=== PATIENT | female | born 1980 ===

== ENCOUNTER 2019-06-05 07:49 | Inpatient (IN) | payer MEDICAID ==
[~2019-06-05] VITALS: Ht 157.5 cm; Wt 58.8 kg
[2019-06-06 12:07] VITALS: BP 167/83
[2019-06-06] MEDS ORDERED: hydrOXYzine 25 MG tablet PO PRN ×2 (12:10→14:15)
[2019-06-06] MEDS ORDERED: loperamide 2mg capsule PO PRN (12:10)
[2019-06-06] MEDS ORDERED: mag hydrox/Alum hydrox/simeth 30ml oral suspension PO PRN (12:10)
[2019-06-06] MEDS ORDERED: magnesium hydroxide 30ml (MOM) UD suspension PO PRN (12:10)
[2019-06-06] MEDS ORDERED: acetaminophen 325mg tablet PO PRN (12:10)
[2019-06-06] MEDS ORDERED: LORazepam 1 MG tablet PO PRN (12:10)
[2019-06-06 12:55] VITALS: BP 167/83
[2019-06-06] MEDS ORDERED: benzocaine (Anbesol) 12ml bottle MM PRN (14:15)
[2019-06-06] MEDS: ibuprofen 200mg tablet PO PRN (14:39)
[2019-06-06] MEDS: acetaminophen 325mg tablet PO PRN (14:41)
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
--- NOTE | 2019-06-06 15:45 | NUR ---
NURSING PROGRESS NOTE Legal hold: 5150 DTS Client on involuntary status 5150 DTS Report received from nurse with use of SBAR Why are they here: Patient was found down and unresponsive in the shower after ingesting a whole bottle of Baclofen. She was life-flighted to [facility] from [facility] and was admitted to the ICU. ASSESSMENT What has happened this shift: The patient was cooperative with admission process. She is minimizing the very serious nearly life ending overdose she recently endured. States she has been "tricked" regarding the 5150 and states she agreed to come here for 3 days on a hold but will absolutely be leaving on Tuesday. She states she has massive support from family and friends at home and she'll "be good." (She would be returning to the same stressors.) She met with Dr. Lopez for assessment and afterwards stated, "he's going to make sure I can leave by Tuesday." When this nurse attempted a conversation with her about these issues and stressors at home with the suggestion she may be minimizing her recent grave suicide attempt she became irate and unreasonable and asked for a new nurse. S/I, H/I: Denies A/VH: Denies Sleep: None ADL's: Self Group attendance: None Were meds taken: yes Any med S/E: None MENTAL STATUS EXAM Appearance: Lots of tattoos, clean Eye contact: Direct Behavior: labile, irate Speech: pressured, loud Mood: Incongruent with circumstances Affect: Controlling, hostile Thought process: Linear Thought Content: Going home on Tuesday Cognition: Alert Insight: Poor Judgment: Poor INTERVENTIONS PRN's used: Tylenol, Anbesol Therapeutic interventions: 1:1 assessment, establish rapport, active listening, education regarding disease process/medications, encouraged to attend groups, provide a therapeutic environment, and Q15M Safety Checks. Restraints/seclusion/emergency medication: None Justification of Continued Inpatient Treatment: Requires interruption of current crisis, medication adjustments, and a safe and supportive environment to prevent readmission.
[2019-06-06] MEDS ORDERED: DULO60CA45 PO (16:25)
[2019-06-06 20:00] VITALS: BP 151/79
[2019-06-06] MEDS: duloxetine 30mg CAPSULE.DR PO SCH (20:21)
[2019-06-06] MEDS ORDERED: Melatonin 3mg tablet PO SCH (21:00)
[2019-06-07] MEDS: LORazepam 1 MG tablet PO PRN (02:03)
--- NOTE | 2019-06-07 02:40 | NUR ---
NURSING PROGRESS NOTE Legal hold: 5150 DTS Client on involuntary status 5150 DTS Report received from nurse with use of SBAR Why are they here: Patient was found down and unresponsive in the shower after ingesting a whole bottle of Baclofen. She was life-flighted to [facility] from [facility] and was admitted to the ICU. ASSESSMENT What has happened this shift: Pt was in the group room at change of shift awaiting visit from her . Pt states she had a very bad day and apologizes for her behavior earlier stating that she was in a new environment and didnt know she was going to be sent here. She states she is concerned about her and child staying in the [facility] and was told that her child isnt allowed to be there. She is hoping she and her can create a safety plan so she can go home sooner. Pt states she thinks she had a drug interaction that caused her to be unaware of the amount of pills she took. Discussed with patient the idea, that regardless of how she came to overdose on pills, it was still a life threatening situation that she is now admitting that she wasnt making safe decisions for herself. She states that she didnt know of this drug interaction and her family didnt know either. She feels now that they know she should be able to go home. Encouraged patient to utilitize the services offered here while she is here, to get the stabilization she needs. Pt is somewhat reluctant to agree that she needs help, but does agree that services would be beneficial. Pt requested Melatonin for sleep, stating she regularly smokes marijuana to help her sleep. Pt was given PRN Melatonin w/poor effect and was unable to sleep, she was given Atarax which did help some but was finally able to sleep when ativan was provided. Pt states she hasnt been able to sleep well and thinks she will feel better if she is able to sleep. Pts appetite is good and she had a shower this evening before bed after a visit with her . She reports her agreed to have her father in law move out of the home. S/I, H/I: Denies A/VH: Denies Sleep: None ADL's: Self Group attendance: socilizes with other patients and pts Were meds taken: yes Any med S/E: None MENTAL STATUS EXAM Appearance: Adequately groomed and dressed. Showered this evening Eye contact: Direct Behavior: visited w/ and pleasantly interacted with staff and other patients Speech: pressured, rapid, speech Mood: anxious, hypomanic, incongruent with circumstances, laughing when talking about fighting w/her and being found unresponsive in her shower Affect: congruent to mood Thought process: Linear, tangential Thought Content: getting home, creating a safety plan. Cognition: A/Ox4 Insight: Poor Judgment: Poor INTERVENTIONS PRN's used: melatonin, atarax, ativan Therapeutic interventions: 1:1 assessment, establish rapport, active listening, education regarding disease process/medications, encouraged to attend groups, provide a therapeutic environment, and Q15M Safety Checks. Restraints/seclusion/emergency medication: None Justification of Continued Inpatient Treatment: Requires interruption of current crisis, medication adjustments, and a safe and supportive environment to prevent readmission.
[2019-06-07 06:37] LABS: CHOL/HDL RATIO 4.1 (0.00-4.99); CHOLESTEROL 213 MG/DL (0-200); HDL CHOLESTEROL 52 MG/DL (35-60); LDL CHOLESTEROL 149 MG/DL (50-100); TRIGLYCERIDES 62 MG/DL (20-135)
[2019-06-07 08:00] VITALS: BP 118/65
--- NOTE | 2019-06-07 15:28 | NUR ---
NURSING PROGRESS NOTE Legal hold: 5150 DTS Client on involuntary status 5150 DTS Report received from MARLON Navarro with use of SBAR Why are they here: Patient was found down and unresponsive in the shower after ingesting a whole bottle of Baclofen. She was life-flighted to [facility] from [facility] and was admitted to the ICU. ASSESSMENT What has happened this shift: The patient was asleep at change of shift. She was up to breakfast and in the hallway and using the phone to talk with . Shortly after her phone call she became tearful and shaking coming to this nurse and saying, she now realizes that what happened was not an accident and she realizes the gravity of her suicide attempt. States that since she got sleep last night (reports not having slept for "months") everything has become clear to her and she realizes she is very depressed and was suicidal. She believes if she just "goes home" her family and friends will encircle her and "everything will be ok." Legal holds were explained to the patient and their different time frames. Labile, depressed, anxious. given Atarax one time in mid morning with good effect. Minimizing circumstances, thinks all will be normal if she can just go home. S/I, H/I: Denies A/VH: Denies Sleep: None ADL's: Self Group attendance: yes Were meds taken: yes Any med S/E: None MENTAL STATUS EXAM Appearance: Adequately groomed and dressed Eye contact: Direct Behavior: labile Speech: pressured, rapid, speech, talks over nurse, interrupts Mood: anxious, hypomanic, incongruent with circumstances Affect: congruent to mood Thought process: Linear, tangential Thought Content: getting home Cognition: A/Ox4 Insight: Poor Judgment: Poor INTERVENTIONS PRN's used: Atarax Therapeutic interventions: 1:1 assessment, establish rapport, active listening, education regarding disease process/medications, encouraged to attend groups, provide a therapeutic environment, and Q15M Safety Checks. Restraints/seclusion/emergency medication: None Justification of Continued Inpatient Treatment: Requires interruption of current crisis, medication adjustments, and a safe and supportive environment to prevent readmission.
[2019-06-07] MEDS: ibuprofen 200mg tablet PO PRN (17:27)
[2019-06-07 20:23] VITALS: BP 127/85
[2019-06-07] MEDS: duloxetine 30mg CAPSULE.DR PO SCH (20:48)
[2019-06-07] MEDS: Melatonin 3mg tablet PO SCH (20:49)
--- NOTE | 2019-06-08 01:09 | NUR ---
NURSING PROGRESS NOTE Legal hold: 5150 DTS Client on involuntary status 5150 DTS Report received from MARLON Holly with use of SBAR Why are they here: Patient was found down and unresponsive in the shower after ingesting a whole bottle of Baclofen. She was life-flighted to [facility] from [facility] and was admitted to the ICU. ASSESSMENT What has happened this shift: Patient reports this evening that she "is better after talking with the Dr." Patient expresses that she dennis snot remember what happened but she knows she wasn't taking carte of herself or sleeping proprly. She is goal oriented about finding outpatient treatment and doing what she needs to take care of herself once she is discharged.. Patient is cooperative and friendly this evening reporting that she is hopeful for another good nights rest. S/I, H/I: Denies A/VH: Denies Sleep: None ADL's: Independent Group attendance: No groups this shift Were meds taken: Medication compliant Any med S/E: None MENTAL STATUS EXAM Appearance: Adequately groomed and dressed Eye contact: Direct Behavior: Upbeat, talkative Speech: Pressured, rapid, speech Mood: Goal oriented, positive Affect: Congruent to mood Thought process: Linear Thought Content: Getting home, outpatient treatment, sleep Cognition: A/Ox4 Insight: Poor Judgment: Poor INTERVENTIONS PRN's used: None Therapeutic interventions: 1:1 assessment, establish rapport, active listening, education regarding disease process/medications, encouraged to attend groups, provide a therapeutic environment, and Q15M Safety Checks. Restraints/seclusion/emergency medication: None Justification of Continued Inpatient Treatment: Requires interruption of current crisis, medication adjustments, and a safe and supportive environment to prevent readmission.
[2019-06-08] MEDS: LORazepam 1 MG tablet PO PRN (02:03)
[2019-06-08] MEDS ORDERED: lurasidone 60mg tablet PO SCH (08:00)
[2019-06-08 08:19] VITALS: BP 128/81
--- NOTE | 2019-06-08 11:48 | NUR ---
Met with Ct to complete psychosocial assessment. She denied any current SI or HI. She denied that she was suicidal when she overdosed. She claimed she did not recall what happened. Her and daughter are staying at the [facility] and have been visiting daily. She plans on returning home with in [place]. She reported she wants to re-engage with her counselor, Layla Chairez. She sees a doctor at [facility]. VERONICA Ricardo Addendum: 06/08/19 at 1150 by Estela De Leon SS Amended: Links added.
[2019-06-08] MEDS: ibuprofen 200mg tablet PO PRN (15:03)
[2019-06-08] MEDS: acetaminophen 325mg tablet PO PRN (15:03)
--- NOTE | 2019-06-08 17:07 | NUR ---
NURSING PROGRESS NOTE: NAYAN Legal hold: 5150 DTS Client on involuntary status 5150 DTS Report received from MARLON Rose with use of SBAR Why are they here: Patient was found down and unresponsive in the shower after ingesting a whole bottle of Baclofen. She was life-flighted to [facility] from [facility] and was admitted to the ICU. ASSESSMENT What has happened this shift: Patient is community room at change of shift watching tv and socializing with peers. She requests to have a shower and her sheets changed as she reports sweating profusely in them d/t "menopause heat flashes." Mult Au Matic Operator inquired if pt has been taking hormones for said menopause and she reports she does not because she has a h/o stroke. Pt reports that she has a meeting with the doctor and family at 10am today to discuss her tentative d/c on Tuesday. She denies any SE's to medications and none were objectively observed. S/I, H/I: Denies A/VH: Denies Sleep: 7.5hrs NOC ADL's: Independent Group attendance: yes Were meds taken: Medication compliant Any med S/E: None MENTAL STATUS EXAM Appearance: Adequately groomed and dressed Eye contact: Direct Behavior: Upbeat, talkative Speech: Pressured, rapid, speech Mood: Goal oriented, optimistic Affect: Congruent to mood Thought process: Linear Thought Content: Getting home, outpatient treatment, menopause Cognition: A/Ox4 Insight: Poor Judgment: Poor INTERVENTIONS PRN's used: None Therapeutic interventions: 1:1 assessment, establish rapport, active listening, education regarding disease process/medications, encouraged to attend groups, provide a therapeutic environment, and Q15M Safety Checks. Restraints/seclusion/emergency medication: None Justification of Continued Inpatient Treatment: Requires interruption of current crisis, medication adjustments, and a safe and supportive environment to prevent readmission.
[2019-06-08 19:41] VITALS: BP 120/75
[2019-06-08] MEDS ORDERED: zolpidem 5mg tablet PO ONE (20:25)
[2019-06-08] MEDS: duloxetine 30mg CAPSULE.DR PO SCH (20:58)
[2019-06-08] MEDS: Melatonin 3mg tablet PO SCH (20:58)
--- NOTE | 2019-06-09 02:28 | NUR ---
NURSING PROGRESS NOTE: NAYAN Legal hold: 5150 DTS Client on involuntary status 5150 DTS Report received from MARLON Francois with use of SBAR Why are they here: Patient was found down and unresponsive in the shower after ingesting a whole bottle of Baclofen. She was life-flighted to [facility] from [facility] and was admitted to the ICU. ASSESSMENT What has happened this shift: Patient is community room at change of shift watching tv and putting together a puzzle. She is upbeat and talkative upon being greeted. She agrees to an assessment at her bedside. She reports still wanting to work on sleep. She speaks about setting up appointments to go home, and having a "team" to help her once discharged. Patients speaks about her future and is very goal oriented. S/I, H/I: Denies A/VH: Denies Sleep: Currently sleeping, see sleep assessment ADL's: Independent Group attendance: No groups this shift Were meds taken: Medication compliant Any med S/E: None MENTAL STATUS EXAM Appearance: Adequately groomed and dressed Eye contact: Direct Behavior: Upbeat, talkative Speech: Pressured, rapid, speech Mood: Goal oriented, optimistic Affect: Congruent to mood Thought process: Linear Thought Content: Getting home, outpatient treatment Cognition: A/Ox4 Insight: Poor Judgment: Poor INTERVENTIONS PRN's used: Joseien Therapeutic interventions: 1:1 assessment, establish rapport, active listening, education regarding disease process/medications, encouraged to attend groups, provide a therapeutic environment, and Q15M Safety Checks. Restraints/seclusion/emergency medication: None Justification of Continued Inpatient Treatment: Requires interruption of current crisis, medication adjustments, and a safe and supportive environment to prevent readmission.
[2019-06-09] MEDS: acetaminophen 325mg tablet PO PRN (08:14)
[2019-06-09] MEDS: ibuprofen 200mg tablet PO PRN (08:14)
[2019-06-09 08:15] VITALS: BP 112/80
[2019-06-09] MEDS ORDERED: STORE MEDs IN PHARMACY MC (12:37)
[2019-06-09] MEDS ORDERED: LURA60TA2 PO (12:37)
--- NOTE | 2019-06-09 13:38 | NUR ---
DISCHARGE NOTE The patient was discharged today at 1338. She left with all instructions, her own medications, and her new prescriptions were called in to [facility] on [address]. She stated she was quite ready and eager to return to her home in [facility] and will contact her Providers for f/u care. She reports no thoughts of suicide. She was escorted to the lobby by her , daughter, and [facility].
[2019-06-09] MEDS ORDERED: lurasidone 60mg tablet PO SCH (18:00)
== END 2019-06-09 13:30 | disposition home or self-care (01) | DRG 753 ==
LOC: ADULT MH 06-06 10:25
PROVIDERS: ADMIT Psychiatry & Neurology Psychiatry; ATTEND Psychiatry & Neurology Psychiatry
DX: F39 Unspecified mood [affective] disorder (principal); R45.851 Suicidal ideations; E11.9 Type 2 diabetes mellitus without complications; F43.12 Post-traumatic stress disorder, chronic; J45.909 Unspecified asthma, uncomplicated; M79.7 Fibromyalgia; I10 Essential (primary) hypertension; F32.9 Major depressive disorder, single episode, unspecified; F17.200 Nicotine dependence, unspecified, uncomplicated; T42.8X2A Poisoning by antiparkinsonism drugs and other central muscle-tone depressants, intentional self-harm, initial encounter; F42.9 Obsessive-compulsive disorder, unspecified; F14.90 Cocaine use, unspecified, uncomplicated; N80.9 Endometriosis, unspecified; Z90.710 Acquired absence of both cervix and uterus; Z79.899 Other long term (current) drug therapy; Y92.89 Other specified places as the place of occurrence of the external cause; Z98.51 Tubal ligation status
CPT/HCPCS: 36415; 80061; 83036; 87081; Z7610